=== PATIENT | male | born 1940 | race Caucasian/White ===

== ENCOUNTER 2020-03-19 10:46 | Emergency (ER) | payer MEDICARE, OTHER ==
[~2020-03-19] VITALS: Ht 182.9 cm; Wt 95.5 kg
[~2020-03-19 10:46] MED LIST: ASPIRIN E.C. 8181 MG PO; FLOMAX 0.40.4 MG/CAP PO; LIPITOR 40MG TA40 MG PO; NAPROSYN500 MG PO; PERCOCET 325 MG1 TA2 PO; ZESTRIL40 MG PO; ZOFRAN 4MG T4 MG/TAB PO
[2020-03-19 10:56] VITALS: TEMP 98.2
[2020-03-19 11:22] LABS: BASO # 0.1 (0.0-0.2); BASO % 0.7 % (0.0-2.0); EOS # 0.1 (0.0-0.7); GRAN # 3.4 (1.4-6.5); GRAN % 46.8 % (42.2-75.2); HEMATOCRIT 43.1 % (42.0-52.0); HEMOGLOBIN 14.7 g/dl (13.5-18.0); LYMPH # 2.8 (1.2-3.4); LYMPH % 38.4 % (20.0-51.0); MEAN CELL VOLUME 91 fl (80.0-100.0); MEAN CORPUSCULAR HEMOGLOBIN 31 pg (27.0-31.0); MEAN CORPUSCULAR HGB CONC 34 g/dl (33.0-37.0); MEAN PLATELET VOLUME 8.9 fl (7.4-10.4); MONO # 0.8 (0.1-0.6); MONO % 11.5 % (1.7-9.3); PLATELET COUNT 198 K/mm3 (130-400); RED BLOOD COUNT 4.73 M/mm3 (4.20-5.60); REDCELL DISTRIBUTION WIDTH-CV 12.2 % (11.5-14.5)
[2020-03-19 11:28] LABS: ALANINE AMINOTRANSFERASE 26 U/L (4-49); ALBUMIN 4.2 gm/dL (3.5-5.0); ALKALINE PHOSPHATASE 60 U/L (50-136); ANION GAP 7 mmol/L (7-16); AST,SGOT 34 U/L (15-37); BILIRUBIN,TOTAL 0.9 mg/dL (0.0-1.0); BLOOD UREA NITROGEN 18 mg/dL (9-20); CALCIUM 9.3 mg/dL (8.4-10.2); CARBON DIOXIDE 26 mmol/L (22-30); CHLORIDE 105 mmol/L (98-107); CREATININE, serum 0.88 (0.66-1.25); GLUCOSE 71 mg/dL (74-106); SODIUM 138 mmol/L (137-145); TOTAL PROTEIN 7.4 gm/dL (6.4-8.2)
[2020-03-19 11:45] LABS: TROPONIN-I < 0.012 ng/mL (0.000-0.035)
[2020-03-19] MEDS ORDERED: TOPROL XL100 MG PO (12:34)
[2020-03-19] MEDS ORDERED: NITROSTAT0.4 MG/TAB SL (12:34)
[2020-03-19 12:48] LABS: INR 1.1 (0.8-3.0); PROTHROMBIN TIME 12.6 SECONDS (9.7-12.8)
[2020-03-19 12:52] VITALS: BP 166/87; PULSE 53
== END 2020-03-19 12:48 | disposition home or self-care (01) ==
LOC: COL.ER 10:46
PROVIDERS: Emergency Medicine
DX: I20.9 Angina pectoris, unspecified (principal); I10 Essential (primary) hypertension; E78.5 Hyperlipidemia, unspecified; E78.00 Pure hypercholesterolemia, unspecified
CPT/HCPCS: J7030

== ENCOUNTER → 2024-09-16 | Outpatient (CLI) | payer MEDICARE, OTHER ==
[~2024-09-16] MED LIST changes: +CEPHALEXIN500 M1 PO; +Iohexol 300 - 100 ML VIAL IV ONE; +NITROSTAT0.4 MG/TAB SL; +NORCO 325 MG-51 TAB PO; +NS 100 ML IV SCH; +TOPROL XL100 MG PO
== END ==
LOC: COL.RAD 07:54
DX: C49.9 Malignant neoplasm of connective and soft tissue, unspecified (principal); R91.1 Solitary pulmonary nodule
CPT/HCPCS: Q9967